=== PATIENT | female | born 1955 | race Caucasian/White ===

== ENCOUNTER → 2016-11-07 | Outpatient (CLI) | payer BC ==
[~2016-11-07] MED LIST: TENORMIN0.5 MG/ML IV
== END ==
LOC: MC.RAD 13:00
DX: Z12.31 Encounter for screening mammogram for malignant neoplasm of breast (principal)

== ENCOUNTER → 2018-03-05 | Outpatient (CLI) | payer BC | LOC: MC.RAD 01-25 16:20 | DX: Z12.31 Encounter for screening mammogram for malignant neoplasm of breast (principal) ==

== ENCOUNTER 2018-11-04 19:10 | Observation (INO) | payer BC ==
[~2018-11-04] VITALS: Ht 165.1 cm; Wt 72.8 kg
[2018-11-04] MEDS ORDERED: DITROPAN 5MG TAB5 MG PO (20:01)
[2018-11-04] MEDS ORDERED: TENORMIN 5050 MG/TAB PO (20:02)
[2018-11-04 20:07] VITALS: BP 136/57; PULSE 106; TEMP 98.9
--- NOTE | 2018-11-04 20:15 | NUR ---
Patient arrived to floor by wheelchair as a direct admit from [facility]. Called [facility] to get report on patient, spoke to DENIS Dunn. Patient reports having pain to right abd, rating it at 8/10 when moving or pushing on her abd. Denies n/v at this time, but reports emesis earlier in the day. Has had nothing to eat since this morning at 0900 and nothing to drink since around 1230 this afternoon. Patient home meds and allergies verified. Up to bathroom to void prior to surgery. IV fluids hung with straight tubing per anesthesiology. No other needs reported.
[2018-11-04 20:31] VITALS: BP 136/57; PULSE 106; TEMP 98.9
--- NOTE | 2018-11-04 20:45 | NUR ---
Consent for surgery signed by patient. Pre-Op checklist complete. Patient to go down soon for [facility], possible open.
[2018-11-04] MEDS ORDERED: NORCO 325 MG-51 TAB PO (22:05)
[2018-11-04] MEDS ORDERED: COLACE 100100 MG/CAP PO (22:05)
[2018-11-04] MEDS ORDERED: MOTRIN 600600 MG/TAB PO (22:05)
[2018-11-04] MEDS ORDERED: AMOXICILLIN 8751 TAB PO (22:06)
[2018-11-04 22:45] VITALS: BP 130/65; PULSE 102; TEMP 98.6
[2018-11-04 23:00] VITALS: BP 124/66; PULSE 99
[2018-11-04 23:15] VITALS: BP 132/59; PULSE 95
[2018-11-04 23:30] VITALS: BP 129/56; PULSE 95
[2018-11-05] VITALS (8 sets, daily range): BP systolic 111–133; BP diastolic 53–64; PULSE 70–92; TEMP 97.6–98.4
--- NOTE | 2018-11-05 07:13 | NUR ---
Patient report given to DENIS Esquivel. Patient resting comfortably, no needs observed. Patient plans to be discharged today.
--- NOTE | 2018-11-05 10:04 | NUR ---
ELIUD met with the patient and patient's , Terrell, to discuss discharge plan. The patient lives in [place] with her . She reports independence with ADLs and has a cane and wheelchair. The patient's PCP is Dr. Annabella Mcfarlane and she receives her medications at [facility]. She reports no difficulties obtaining her meds. The patient does not have advanced directives in EMR, but she states that she does have them completed. She states her DPOA-HC is her . The patient plans to return home with her upon discharge. No additional needs at this time.
--- NOTE | 2018-11-05 10:30 | NUR ---
Patient alert and oriented, answers questions appropriately. See assessment. Abdomen soft, non tender, non distended. Bowel sounds hypoactive x4 quads. Abdomen lap sites x3 with edges well approximated, no redness or drainage noted. +Flatus. No c/o pain or discomfort.
--- NOTE | 2018-11-05 11:16 | NUR ---
Initial visit; Patient thanked [employer] for looking in on her and offering God's blessings. Patient's present and offering support.
--- NOTE | 2018-11-05 18:59 | NUR ---
Discharge instructions reviewed with patient and spouse, verbalized understanding. Discharged via wheelchair to auto/home with family at 1858.
== END 2018-11-05 18:57 | disposition home or self-care (01) ==
LOC: SURG 19:43
PROVIDERS: ADMIT Surgery
DX: K35.80 Unspecified acute appendicitis (principal); G35 Multiple sclerosis; I10 Essential (primary) hypertension; Z79.899 Other long term (current) drug therapy
CPT/HCPCS: A9284; G0378; J0694; J1100; J1885; J2405; J2704; J3010; J7030; J7120

== ENCOUNTER → 2019-05-20 | Outpatient (CLI) | payer BC ==
[~2019-05-20] MED LIST changes: +AMOXICILLIN 8751 TAB PO; +COLACE 100100 MG/CAP PO; +DITROPAN 5MG TAB5 MG PO; +MOTRIN 600600 MG/TAB PO; +NORCO 325 MG-51 TAB PO; +TENORMIN 5050 MG/TAB PO
== END ==
LOC: MC.RAD 15:53
DX: Z12.31 Encounter for screening mammogram for malignant neoplasm of breast (principal)

== ENCOUNTER 2019-11-26 14:16 | Observation (INO) | payer BC ==
[~2019-11-26] VITALS: Ht 165.1 cm; Wt 74.3 kg
[2019-11-26 14:39] LABS: BASO % 0.5 % (0.0-2.0); EOS # 0.1 (0.0-0.7); EOS % 1.4 % (0-4.0); GRAN # 3.5 (1.4-6.5); GRAN % 59.9 % (42.2-75.2); HEMATOCRIT 42.1 % (37.0-47.0); HEMOGLOBIN 13.8 g/dl (12.5-16.0); LYMPH # 1.5 (1.2-3.4); LYMPH % 26.5 % (20.0-51.0); MEAN CELL VOLUME 90 fl (80.0-100.0); MEAN CORPUSCULAR HEMOGLOBIN 29 pg (27.0-31.0); MEAN CORPUSCULAR HGB CONC 33 g/dl (33.0-37.0); MEAN PLATELET VOLUME 11.6 fl (7.4-10.4); MONO # 0.7 (0.1-0.6); MONO % 11.4 % (1.7-9.3); PLATELET COUNT 215 K/mm3 (130-400); RED BLOOD COUNT 4.69 M/mm3 (4.10-5.30); REDCELL DISTRIBUTION WIDTH-CV 12.6 % (11.5-14.5)
[2019-11-26 14:57] LABS: ALBUMIN 4.3 gm/dL (3.5-5.0); C-REACTIVE PROTEIN 0.6 mg/dL (0.0-0.9); CALCIUM 9.3 mg/dL (8.4-10.2); CREATININE, serum 0.72 (0.52-1.25); POTASSIUM 3.8 mmol/L (3.4-5.0); TOTAL PROTEIN 7.5 gm/dL (6.4-8.2)
[2019-11-26 15:11] LABS: PROLACTIN 45.9 ng/mL (3.0-18.6)
[2019-11-26] MEDS ORDERED: VITAMIN D31000 IU PO (16:17)
[2019-11-26] MEDS ORDERED: SUPER CALCIUM W1 TA2 PO (16:18)
[2019-11-26] MEDS ORDERED: MAGNESIUM250 M1 PO (16:19)
[2019-11-26 17:30] VITALS: BP 135/70; PULSE 72; TEMP 98.5
[2019-11-26] MEDS ORDERED: LYSINE 500500 MG/TAB PO (18:03)
--- NOTE | 2019-11-26 18:46 | NUR ---
Pt up to room 315, Pt laying in bed, at bedside. Pt is A&O, SBA w/ cane. Pt on room air, breathing is even and unlabored. Denies SOB. Pt denies N/V/D, abdominal pain, palpitations. BS active X4. Heart RRR. Pulses strong bilaterally. No edema noted. Pt has Lt arm in sling, states "don't know if it is helping". C/o of pain to lt arm/elbow, denies need for ice pack at this time. Admission, med rec completed. Pt assisted to bathroom w/ SBA and cane. RAC INT IV flushes w/o complications. Seizure precautions in place. No other concerns expressed at this time. Dinner tray delivered.
[2019-11-26 19:31] VITALS: BP 141/60; PULSE 77; TEMP 98.4
[2019-11-26 20:10] VITALS: BP 147/65; PULSE 81
[2019-11-26 20:15] VITALS: BP 156/65; PULSE 88
[2019-11-26 20:20] VITALS: BP 154/75; PULSE 91
--- NOTE | 2019-11-26 22:15 | NUR ---
Resting in bed. Assessment complete. Lungs clear. Heart sounds normal. Bowels active x4. Pulses present throughout. No edema noted. IV right AC without complications. Reports 6/10 pain in left elbow. Given tylenol. Denies needs. Call light in reach.
[2019-11-26 23:44] VITALS: BP 128/60; PULSE 64; TEMP 98.6
--- NOTE | 2019-11-27 00:45 | NUR ---
Resting in bed. Denied needs. Call light in reach.
--- NOTE | 2019-11-27 02:00 | NUR ---
Resting in bed asleep at this time.
[2019-11-27 03:54] VITALS: BP 131/60; PULSE 70; TEMP 97.8
--- NOTE | 2019-11-27 06:00 | NUR ---
Patient had uneventful night. Resting in bed this AM. Call light in reach. Denies needs.
[2019-11-27 07:17] LABS: CALCIUM 8.6 mg/dL (8.4-10.2); CREATININE, serum 0.58 (0.52-1.25); POTASSIUM 3.8 mmol/L (3.4-5.0)
--- NOTE | 2019-11-27 07:21 | NUR ---
Report given to DENIS Byers
[2019-11-27 07:55] VITALS: BP 146/65; PULSE 63; TEMP 98.3
[2019-11-27 08:23] LABS: BASO % 0.2 % (0.0-2.0); EOS % 0.5 % (0-4.0); GRAN # 4.5 (1.4-6.5); HEMATOCRIT 39.9 % (37.0-47.0); LYMPH # 1.1 (1.2-3.4); LYMPH % 17.8 % (20.0-51.0); MEAN CELL VOLUME 90 fl (80.0-100.0); MEAN CORPUSCULAR HEMOGLOBIN 29 pg (27.0-31.0); MEAN CORPUSCULAR HGB CONC 33 g/dl (33.0-37.0); MEAN PLATELET VOLUME 11.4 fl (7.4-10.4); MONO # 0.7 (0.1-0.6); MONO % 10.2 % (1.7-9.3); PLATELET COUNT 207 K/mm3 (130-400); RED BLOOD COUNT 4.45 M/mm3 (4.10-5.30); REDCELL DISTRIBUTION WIDTH-CV 12.9 % (11.5-14.5)
--- NOTE | 2019-11-27 09:54 | NUR ---
Pt assesment completed and charted. Pt is A&O, SBA w/ cane in room. Pt on room air, breathing is even and unlabored, denies SOB, N/V/D, chest pain, abdominal pain. Pt denies pain to left elbow, states it's "just tender". Denies need for pain medication, received tylenol w/ contact centre supervisor, stated "it worked well". IVF infusing to LAC w/o issues. IVF put on sandby at this time. Pt to have MRI. Ativan ordered to give prior to departure for MRI, d/t anxiety. No edema noted, Heart RRR, pulses strong bilaterally, BS active X4. Lip slightly swollen w/ sutures intact. No further needs expressed at this time. Call light within reach.
[2019-11-27 12:12] VITALS: BP 130/70; PULSE 67; TEMP 99.1
--- NOTE | 2019-11-27 13:51 | NUR ---
ELIUD met with the patient to discuss discharge plan. The patient lives in [place] with her , Terrell (ph#[phone]). She reports independence with ADLs and has a cane. The patient's PCP is Dr. Annabella Mcfarlane and she receives her medications at [facility]. She reports no difficulties obtaining her meds. The patient does not have advanced directives EMR, but she reports that she does have them completed and that the documents are at home. She states that her is her DPOA-HC. The patient plans to return home with her upon discharge. No additional needs at this time.
--- NOTE | 2019-11-27 14:45 | NUR ---
Pt doing well, states she has some "tenderness" to the elbow still but denies needs for pain medication. Assisted to bathroom w/ cane and SBA. No further needs.
[2019-11-27 16:37] VITALS: BP 133/54; PULSE 70; TEMP 98.1
[2019-11-27 19:30] VITALS: BP 130/63; PULSE 85; TEMP 97.9
--- NOTE | 2019-11-27 20:30 | NUR ---
Initial shift assessment done- denies pain to left arm,up on pillow for comfort. Seizure Precautions. Up to bathroom with assistance,voiding well-back to bed -SCDs placed on pt. Tele on. IV fluids of NS at 75cc/hr
[2019-11-28 00:34] VITALS: BP 126/61; PULSE 64; TEMP 98.1
[2019-11-28 04:15] VITALS: BP 134/64; PULSE 63; TEMP 97.7
--- NOTE | 2019-11-28 05:16 | NUR ---
Quiet night- denies need for pain meds- no requests. VSS, SCD.s on- continues with NS at 75cc/hr. Pt calls for assistance to bathroom.
[2019-11-28 08:54] VITALS: BP 131/52; PULSE 78; TEMP 98.2
--- NOTE | 2019-11-28 09:13 | NUR ---
Pt assessment complete. Pt is laying in bed upon entry, she is A/O x4. Her breathing is even and unlabored on RA. Pt denies SOB. No pain at this time. Neuro checks WNL, farm machine tender equal bilaterally. SCD's to BLE. No needs at this time, seizure precautions in place. Call light within reach. Will continue to monitor.
[2019-11-28] MEDS ORDERED: ASPIRIN E.C. 8181 MG PO (09:31)
[2019-11-28] MEDS ORDERED: LIPITOR 40MG TA40 MG PO (09:31)
[2019-11-28] MEDS ORDERED: TYLENOL 325MG325 MG PO (09:33)
--- NOTE | 2019-11-28 10:38 | NUR ---
Initial viit; Patient thanked [employer] for looking in on her, stating it means a great deal to her to know [employer] is available and offered her God's blessings and will keep her in [employer]'s prayers.
--- NOTE | 2019-11-28 11:30 | NUR ---
Discharge instructions reviewed with patient, all questions answered at this time. IV to RAC dc'd catheter tip intact. Pt wheeled out at this time.
== END 2019-11-28 11:35 | disposition home or self-care (01) ==
LOC: COL.ER 14:16 → MEDICAL 15:59
PROVIDERS: Family Medicine; Physician Assistant; ADMIT Hospitalist
DX: R55 Syncope and collapse (principal); M25.522 Pain in left elbow; R73.9 Hyperglycemia, unspecified; G35 Multiple sclerosis; I10 Essential (primary) hypertension; I63.412 Cerebral infarction due to embolism of left middle cerebral artery; W18.30XA Fall on same level, unspecified, initial encounter; Z79.82 Long term (current) use of aspirin; Z80.0 Family history of malignant neoplasm of digestive organs; I07.1 Rheumatic tricuspid insufficiency
CPT/HCPCS: 99223-AI; 99239; A9585; G0378; J2060; J3010; J7030; J7040

== ENCOUNTER → 2020-06-03 | Outpatient (CLI) | payer BC ==
[~2020-06-03] MED LIST changes: +ASPIRIN E.C. 8181 MG PO; +LIPITOR 40MG TA40 MG PO; +LYSINE 500500 MG/TAB PO; +MAGNESIUM250 M1 PO; +SUPER CALCIUM W1 TA2 PO; +TYLENOL 325MG325 MG PO; +VITAMIN D31000 IU PO
== END ==
LOC: MC.RAD 09:11
DX: Z12.31 Encounter for screening mammogram for malignant neoplasm of breast (principal)

== ENCOUNTER → 2021-07-14 | Outpatient (CLI) | payer MEDICARE | LOC: MC.RAD 12:24 | DX: Z12.31 Encounter for screening mammogram for malignant neoplasm of breast (principal) ==